=== PATIENT | female | born 1940 | race African-American/Black ===

== ENCOUNTER 2018-09-21 14:07 | Emergency (ER) | payer MEDICARE, OTHER ==
[2018-09-21 14:26] VITALS: BP 151/72
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
== END 2018-09-21 14:44 | disposition home or self-care (01) ==
LOC: ED 14:07
DX: J70.5 Respiratory conditions due to smoke inhalation (principal); Z86.79 Personal history of other diseases of the circulatory system
CPT/HCPCS: 99283